=== PATIENT | male | born 1965 | race Caucasian/White ===

== ENCOUNTER 2024-08-04 08:20 | Emergency (ER) | payer OTHER ==
[2024-08-04] MEDS ORDERED: KETOROLAC 30 MG/ML INJ ONE (08:43)
[2024-08-04 09:02] LABS: Absolute Eosinophils 0.1 K/uL (0-0.5); Absolute Lymphocytes (CBC) 1.4 K/uL (0.7-4.9); Absolute Monocytes 0.6 K/uL (0.1-1.3); Absolute Neutrophil 10.8 K/uL (1.8-8.0); Basophils % 0.2 % (0-1.3); Eosinophils % 0.5 % (0-4.4); Hematocrit 43.1 % (39.6-49.0); Hemoglobin 14.2 g/dL (13.6-17.9); Lymphocytes % 10.7 % (15.3-44.8); MCH 30.5 pg (27.0-35.0); MCV 92.4 fL (80-100); MPV 7.8 fL (7.6-11.3); Monocytes % 4.4 % (3.3-12.3); Neutrophils % 84.2 % (41.7-73.7); Platelets 374 thou/uL (152-406); RBC Red Blood Cell Count 4.66 M/uL (4.33-5.43); Red Cell Distribution Width 12.4 % (12.1-15.2)
[2024-08-04 09:35] LABS: Specific Gravity > 1.030 (1.005-1.030); Sqamous Epithelial <5 /HPF (None Seen); Urine Bacteria None Seen /HPF (<20); Urine Bilirubin 1+ (Negative); Urine Blood Negative (Negative); Urine Clarity Clear (Clear); Urine Color Yellow (Yellow); Urine Culture Reflex Order NOT NEEDED; Urine Glucose NEGATIVE (Negative); Urine Ketones 3+ (Negative); Urine Micro Reflex YN NO BILL MICROSCOPIC; Urine Mucus 2+ /HPF (None Seen); Urine Nitrite NEGATIVE (Negative); Urine Protein 1+ (Negative); Urine RBC <5 /HPF (None Seen); Urine Urobilinogen 1+ (Normal); Urine WBC <5 /HPF (<5); Urine pH 5.5 (5.0-7.0)
--- NOTE | 2024-08-04 09:45 | RAD REPORT ---
EXAMINATION: CT Abdomen Pelvis Wo Contrast CLINICAL INDICATION: Male, 59 years old. FLANK PAIN TECHNIQUE: CT abdomen and pelvis was performed, without IV contrast, as per department protocol. Axia l, sagittal and coronal reconstructions were obtained. One or more of the following dose reduction techniques were used: Automated exposure control, adjustment of the mA and kV according to the patien t size, and iterative reconstruction. Unless otherwise specified, incidental findings do not require dedicated imaging follow-up. COMPARISON: No prior exam. FINDINGS: The lack of intravenous contrast limits the sensitivity of this exam for evaluation of solid visceral organs, vascular structures, and retroperitoneum. LOWER CHEST: The visualized lung bases are clear. LIVER: Normal in size and contour. No focal lesion. BILIARY SYSTEM: No suspicious abnormalities. SPLEEN: Normal size. No focal lesion. PANCREAS: No mass, ductal dilation, or samantha-pancreatic fluid. ADRENALS: Normal; no mass. KIDNEYS AND URETERS: Normal size and contour. No hydronephrosis. Bilateral lower pole nonobstructing calculi, not exceeding 3 mm. URINARY BLADDER: Decompressed limiting evaluation. GASTROINTESTINAL TRACT: Focal inflammatory changes with adjacent fat stranding centered along the dis nagella descending colon diverticulum projecting laterally. Mild sigmoid diverticulosis. Trace layering fluid along the left paracolic gutter. No abnormal collections. No evidence of bowel obstruction, sig nificant free fluid, free air or abscess. APPENDIX: Normal appendix. LYMPH NODES: No lymphadenopathy. MUSCULOSKELETAL: No acute or suspicious osseous abnormality. ADDITIONAL FINDINGS: None. IMPRESSION: Changes of uncomplicated acute diverticulitis of the distal descending colon. Bilateral nonobstructing lower pole renal calculi not exceeding 3 mm..
[2024-08-04 09:56] LABS: Albumin 3.9 g/dL (3.4-5.0); Albumin/Globulin Ratio 1.1 (1.1-1.8); Anion Gap 9.1 mEq/L (5.0-15.0); Bilirubin Total 2.3 mg/dL (0.2-1.0); Globulin 3.6 g/dL (2.3-3.5); Potassium 4.1 mEq/L (3.5-5.1); Protein, Total 7.5 g/dL (6.4-8.2)
--- NOTE | 2024-08-04 09:57 | EDPHYS ---
Physician Documentation [facility] Name: Kody Florez Age: 59 yrs Sex: Male : 1965 Arrival Date: 08/04/2024 Time: 08:20 Bed 20 Private MD: ED Physician Vicente Martinez HPI: 08/04 08:40 This 59 yrs old Male presents to ER via Ambulatory with complaints of Flank ec2 Pain - Left. 08:40 Patient arrives today for evaluation of left-sided flank pain. Reports onset of 2 days ec2 ago. Reports the pain has been constant. Some improvement with Tylenol. Previous history of diverticulitis and feels similar. Reports no nausea or vomiting.. Historical: - Allergies: 08:30 No Known Allergies; iw - Home Meds: 08:30 lisinopril 20 mg Oral tablet daily [Active]; iw - PMHx: 08:30 Hypertensive disorder; Diverticulitis; iw - PSHx: 08:30 carpal tunnel; iw - Immunization history:: Adult Immunizations not up to date. - Infectious Disease History:: Denies. - Social history:: Smoking status: Patient denies any tobacco usage or history of. ROS: 08:40 Constitutional: as per hpi ec2 Exam: 08:40 Constitutional: GEN: NAD Head: atraumatic Eyes: EOMI Ears: External ears are ec2 normal. CV: regular rate LUNGS: no respiratory distress ABD: non-distended, soft, not guarding, not rigid, mild left lower abdomen TTP, flanks negative bilaterally SKIN: no evidence of rashes MSK: no evidence of trauma Vital Signs: 08:28 BP 146 / 65; Pulse 78; Resp 16; Temp 97.8; Pulse Ox 100% on R/A; Weight 74.84 kg; iw Height 5 ft. 8 in. ; Pain 3/10; 10:15 BP 142 / 74; Pulse 74; Resp 17; Pulse Ox 99% on R/A; rs5 08:28 Body Mass Index 25.09 (74.84 kg, 172.72 cm) iw 08:28 Pain Scale: Adult iw MDM: 08:32 Medical Screening Exam initiated ec2 08:40 Data reviewed: vital signs, nurses notes. ED course: Patient arrives today for left ec2 abdominal pain. Examination yields abdominal findings as above. Will obtain lab work, treat the patient's pain and reassess. Differential includes process such as diverticulitis, ureteral stone, UTI.. 09:50 ED course: CBC with slight leukocytosis. CT abdomen pelvis shows uncomplicated ec2 diverticulitis. Restart the patient on antibiotics and have the patient follow-up PCP.. 08/04 08:40 Order name: CBC with Diff; Complete Time: 09:22 ec2 08/04 08:40 Order name: CMP; Complete Time: 09:56 ec2 08/04 08:40 Order name: Lipase; Complete Time: 09:56 ec2 08/04 08:41 Order name: UAM; Complete Time: 09:49 ec2 08/04 08:40 Order name: CT Abd/Pelvis - Without Contrast; Complete Time: 09:49 ec2 08/04 08:40 Order name: IV Saline Lock; Complete Time: 08:50 ec2 08/04 08:40 Order name: Labs collected and sent; Complete Time: 08:50 ec2 Administered Medications: 08:51 Not Given (Patient Refused): TORadol - [id number] mg IVP once rs5 09:55 Drug: Amoxicillin-Clavulanate PO 875 mg PO once Route: PO; rs5 Disposition Summary: 08/04/24 09:56 Discharge Ordered Notes: Location: Home ec2 Condition: Stable ec2 Diagnosis - Diverticulitis of large intestine without perforation or abscess without bleeding ec2 Followup: ec2 - With: Private Physician - When: - Reason: Re-evaluation by your physician Discharge Instructions: - Discharge Summary Sheet ec2 - Diverticulitis, [id number] ec2 Forms: - Medication Reconciliation Form ec2 - Antibiotic Education ec2 - Prescription Opioid Use ec2 - Patient Portal Instructions ec2 - Leadership Thank You Letter ec2 Prescriptions: - Augmentin 875-125 mg Oral tablet - take 1 tablet ORAL route every 12 hours for 7 days; 14 tablet; Refills: 0, ec2 Product Selection Permitted Signatures: Dispatcher [employer] Hanh Boles RN RN iw Rusty Mcdaniel RN RN rs5 Vicente Martinez MD MD ec2 Corrections: (The following items were deleted from the chart) 08:40 08:40 Abdomen Pelvis Wo Con+CT.RAD.BRZ ordered. EDMS EDMS 09:56 09:56 Diverticulosis of large intestine without perforation or abscess without bleeding ec2 ec2
--- NOTE | 2024-08-04 09:57 | ER ---
Nurse's Notes [facility] Name: Kody Florez Age: 59 yrs Sex: Male : 1965 Arrival Date: 08/04/2024 Time: 08:20 Bed 20 Private MD: Diagnosis: Diverticulitis of large intestine without perforation or abscess without bleeding Presentation: 08/04 08:28 Chief complaint: Patient states: woke up with left sided ad pain and has not gotten iw better, has had diverticulitis in past , feels swollen and bloated , denies v/d. Coronavirus screen: At this time, the client does not indicate any symptoms associated with coronavirus-19. Ebola Screen: No symptoms or risks identified at this time. Initial Sepsis Screen: Does the patient meet any 2 criteria? No. Patient's initial sepsis screen is negative. Does the patient have a suspected source of infection? No. Patient's initial sepsis screen is negative. Risk Assessment: Do you want to hurt yourself or someone else? Patient reports no desire to harm self or others. Onset of symptoms was August 02, 2024. 08:28 Method Of Arrival: Ambulatory iw 08:28 Acuity: SHAGUFTA 3 iw Historical: - Allergies: 08:30 No Known Allergies; iw - Home Meds: 08:30 lisinopril 20 mg Oral tablet daily [Active]; iw - PMHx: 08:30 Hypertensive disorder; Diverticulitis; iw - PSHx: 08:30 carpal tunnel; iw - Immunization history:: Adult Immunizations not up to date. - Infectious Disease History:: Denies. - Social history:: Smoking status: Patient denies any tobacco usage or history of. Screenin:35 [facility] ED Fall Risk Assessment (Adult) History of falling in the last 3 months, rs5 including since admission No falls in past 3 months (0 pts) Confusion or Disorientation No (0 pts) Intoxicated or Sedated No (0 pts) Impaired Gait No (0 pts) Mobility Assist Device Used No (0 pt) Altered Elimination No (0 pt) Score/Fall Risk Level 0 - 2 = Low Risk Oriented to surroundings, Maintained a safe environment. Abuse screen: Denies threats or abuse. Nutritional screening: No deficits noted. Tuberculosis screening: No symptoms or risk factors identified. Assessment: 08:33 General: Appears in no apparent distress. comfortable, Behavior is calm, cooperative. rs5 Pain: Complains of pain in left lower abdomen Pain radiates to back Pain currently is 3 out of 10 on a pain scale. Quality of pain is described as aching. Neuro: Level of Consciousness is awake, alert, obeys commands, Oriented to person, place, time, situation. Cardiovascular: Patient's skin is warm and dry. Respiratory: Airway is patent Respiratory effort is even, unlabored, Respiratory pattern is regular, symmetrical. GI: Abdomen is round non-distended, Abd is soft and non tender X 4 quads. : No signs and/or symptoms were reported regarding the genitourinary system. EENT: No signs and/or symptoms were reported regarding the EENT system. Derm: Skin is intact, Skin is pink, warm \T\ dry. Musculoskeletal: Range of motion: intact in all extremities. 09:41 Reassessment: Patient and/or family updated on plan of care and expected duration. Pain rs5 level reassessed. Patient is alert, oriented x 3, equal unlabored respirations, skin warm/dry/pink. 10:15 Reassessment: Patient and/or family updated on plan of care and expected duration. Pain rs5 level reassessed. Patient is alert, oriented x 3, equal unlabored respirations, skin warm/dry/pink. Vital Signs: 08:28 BP 146 / 65; Pulse 78; Resp 16; Temp 97.8; Pulse Ox 100% on R/A; Weight 74.84 kg; iw Height 5 ft. 8 in. ; Pain 3/10; 10:15 BP 142 / 74; Pulse 74; Resp 17; Pulse Ox 99% on R/A; rs5 08:28 Body Mass Index 25.09 (74.84 kg, 172.72 cm) iw 08:28 Pain Scale: Adult iw ED Course: 08:24 Patient arrived in ED. ra3 08:30 Triage completed. iw 08:30 Vicente Martinez MD is Attending Physician. ec2 08:30 Arm band placed on. iw 08:34 Rusty Mcdaniel, ABBY is Primary Nurse. rs5 08:35 Patient has correct armband on for positive identification. Placed in gown. Bed in low rs5 position. Call light in reach. Side rails up X2. 08:35 No provider procedures requiring assistance completed. rs5 08:52 CBC with Diff Sent. cc6 08:52 CMP Sent. cc6 08:52 Lipase Sent. cc6 08:52 Initial lab(s) drawn, by me, sent to lab. Inserted saline lock: 20 gauge in right cc6 antecubital area, using aseptic technique. Blood collected. Flushed with 10 mL NS. 08:57 CT Abd/Pelvis - Without Contrast In Process Unspecified. EDMS 10:15 Provided Education on: discharge instructions. rs5 10:17 IV discontinued, intact, bleeding controlled, No redness/swelling at site. Pressure rs5 dressing applied. Administered Medications: 08:51 Not Given (Patient Refused): TORadol - [id number] mg IVP once rs5 09:55 Drug: Amoxicillin-Clavulanate PO 875 mg PO once Route: PO; rs5 Medication: 08:52 VIS not applicable for this client. rs5 Outcome: 09:56 Discharge ordered by . ec2 10:17 Discharged to home ambulatory, rs5 10:17 Condition: stable rs5 10:17 Discharge instructions given to patient, family, Instructed on discharge instructions, follow up and referral plans. Demonstrated understanding of instructions, follow-up care, 10:18 Patient left the ED. rs5 Signatures: Dispatcher [employer] Hanh Boles RN RN Rusty Mcdaniel RN RN rs5 Vicente Martinez MD MD ec2 Mei Garcia ra3 Mar Lema cc6 Corrections: (The following items were deleted from the chart) 12:39 10:40 BP 142 / 74; Pulse 74bpm; Resp 17bpm; Pulse Ox 99% RA; rs5 rs5
[2024-08-04] MEDS ORDERED: AMOX/K CLAV 875 MG TAB ONE (10:14)
[2024-08-04 10:22] VITALS: BP 146/65; TEMP 97.8; O2SAT 100
== END 2024-08-04 10:18 | disposition home or self-care (01) ==
LOC: ER 08:20
DX: K57.32 Diverticulitis of large intestine without perforation or abscess without bleeding (principal)
CPT/HCPCS: 36415; 74176; 80053; 81001; 83690; 85025; 99284